=== PATIENT | female | born 1960 | race Caucasian/White ===

== ENCOUNTER → 2017-01-15 | Outpatient (CLI) | payer BC | END | disposition home or self-care (01) | LOC: C.RDSM 14:41 | PROVIDERS: ATTEND Physical Medicine & Rehabilitation Sports Medicine | DX: M79.672 Pain in left foot (principal) ==

== ENCOUNTER → 2017-05-27 | Outpatient (CLI) | payer BC ==
--- NOTE | 2017-05-27 08:25 | DIAGNOSTIC IMAGING REPORT ---
GALLBLADDER-ABD LIMITED CLINICAL HISTORY: ABD PAIN pain TECHNIQUE: Ultrasound COMPARISON STUDY: None FINDINGS: Moderate gallbladder debris and/or sludge. Gallbladder wall 3 mm. Common bile duct 4 mm. Liver pancreas and right kidney are unremarkable. No evidence for right renal hydronephrosis. IMPRESSION: Sludge-filled gallbladder. Otherwise negative study The above report was generated using voice recognition software. It may contain grammatical, syntax or spelling errors. Electronically signed by: Jameel Vaca M.D. 05/27/2017 8:24 AM Dictated Date/Time: 05/27/2017 8:23 AM
== END | disposition home or self-care (01) ==
LOC: C.ULTR 07:34
PROVIDERS: ATTEND Family Medicine
DX: R10.9 Unspecified abdominal pain (principal)

== ENCOUNTER → 2017-09-18 | Outpatient (CLI) | payer BC, OTHER ==
--- NOTE | 2017-09-18 09:17 | DIAGNOSTIC IMAGING REPORT ---
ULTRASOUND RIGHT UPPER QUADRANT ABDOMEN CLINICAL HISTORY: Right upper quadrant abdominal pain. COMPARISON STUDY: Abdominal ultrasound dated 05/27/2017. TECHNIQUE: Real-time, grayscale, and color flow sonography of the right upper quadrant of the abdomen was performed. Images are reviewed in the transverse and longitudinal planes. FINDINGS: Liver: The liver is normal in size and echotexture. There is no intrahepatic biliary ductal dilatation. The main portal vein is patent. Gallbladder: The gallbladder is normal in appearance. No gallstones are identified. There is no gallbladder wall thickening or pericholecystic fluid. A sonographic Escobar's sign is reportedly absent. The common bile duct measures up to 0.5 cm in diameter. Sludge seen on the 05/27/2017 examination has resolved. Pancreas: Visualized portions of the pancreatic head and body are normal in appearance. Right kidney: Survey images of the right kidney demonstrate normal size and echotexture. There is no hydronephrosis. Ascites: None. IMPRESSION: Unremarkable sonographic assessment of the right upper quadrant. No gallstones are identified. Electronically signed by: Yon Gonzalez M.D. 09/18/2017 9:15 AM Dictated Date/Time: 09/18/2017 9:14 AM
== END | disposition home or self-care (01) ==
LOC: C.ULTR 08:50
PROVIDERS: ATTEND Family Medicine
DX: R10.9 Unspecified abdominal pain (principal)

== ENCOUNTER → 2017-11-25 | Outpatient (CLI) | payer OTHER ==
[~2017-11-25] MED LIST: SINCALIDE INJ 1.2 MCG in SODIUM CHLORIDE 0.9% 100ML 100 ML IV SCH
--- NOTE | 2017-11-25 12:44 | DIAGNOSTIC IMAGING REPORT ---
NUCLEAR HEPATOBILIARY SCAN WITH EJECTION FRACTION IMAGING CLINICAL HISTORY: Right upper quadrant abdominal pain. Biliary sludge. COMPARISON STUDY: Abdominal ultrasound dated 09/18/2017. TECHNIQUE: Dynamic images of the liver and anterior abdomen were obtained every 5 minutes for a total of 60 minutes following the IV administration of 5.5mCi of technetium 99m Choletec. 1.2 mcg of sincalide was then injected with additional images acquired every 5 minutes for 45 minutes to calculate the gallbladder ejection fraction. FINDINGS: The hepatobiliary scan shows prompt and homogeneous hepatic uptake. There is visualized activity within the intra and extrahepatic biliary tree at 10 minutes, and within the gallbladder at 10 minutes. There is normal biliary to bowel transit, with small bowel visualized by 40 minutes. On the sincalide imaging, the gallbladder ejection fraction was measured at 32%. IMPRESSION: 1. Unremarkable nuclear hepatobiliary scan. There is no scintigraphic evidence of cholecystitis. 2. The gallbladder ejection fraction measured 32%. This is low normal to minimally diminished. Electronically signed by: Yon Gonzalez M.D. 11/25/2017 12:43 PM Dictated Date/Time: 11/25/2017 12:41 PM
== END | disposition home or self-care (01) ==
LOC: C.NUCL 10:25
PROVIDERS: ATTEND Family Medicine
DX: R10.9 Unspecified abdominal pain (principal); K76.89 Other specified diseases of liver